=== PATIENT | male | born 1975 | race Caucasian/White ===

== ENCOUNTER 2016-04-29 12:44 | Emergency (ER) | payer OTHER, SELFPAY ==
--- NOTE | 2016-04-29 14:04 | RAD ---
RIGHT FOOT 3 VIEWS: Date: 04/29/16 HISTORY: Trauma, right foot pain. FINDINGS/IMPRESSION: No acute fracture or dislocation is seen. POS: [facility]
== END 2016-04-29 13:16 | disposition home or self-care (01) ==
LOC: MADERS 12:44
DX: S90.221A Contusion of right lesser toe(s) with damage to nail, initial encounter (principal); W22.8XXA Striking against or struck by other objects, initial encounter

== ENCOUNTER 2017-01-06 18:23 | Emergency (ER) | payer OTHER | END 2017-01-06 19:09 | disposition home or self-care (01) | LOC: MADERS 18:23 | DX: R25.2 Cramp and spasm (principal); F17.220 Nicotine dependence, chewing tobacco, uncomplicated | CPT/HCPCS: 99283 ==

== ENCOUNTER 2017-11-15 17:30 | Emergency (ER) | payer OTHER | END 2017-11-15 18:07 | disposition home or self-care (01) | LOC: MADERS 17:30 | DX: M77.9 Enthesopathy, unspecified (principal); I10 Essential (primary) hypertension; F17.220 Nicotine dependence, chewing tobacco, uncomplicated | CPT/HCPCS: 99283 ==

== ENCOUNTER 2018-03-03 13:52 | Emergency (ER) | payer SELFPAY | END 2018-03-03 14:21 | disposition home or self-care (01) | LOC: MADERS 13:52 | DX: R05 Cough (principal); F17.220 Nicotine dependence, chewing tobacco, uncomplicated | CPT/HCPCS: 99281 ==

== ENCOUNTER 2020-02-16 12:17 | Outpatient (CLI) | payer OTHER ==
--- NOTE | 2020-02-16 12:57 | RAD ---
Left hand 3 views HISTORY: Injury. FINDINGS: Mild joint space narrowing, osteophytosis, and subchondral sclerosis at the first carpometa carpal joint. Tiny well-corticated ossification immediately lateral to the base of the trapezium may result from an old injury. Favored to not represent an acute process. Extensive cortical remodeling of the fifth metacarpal shaft and neck from an old healed fracture. Wel l-corticated old appearing injury at the medial base of the fifth metacarpal evident on the oblique view. IMPRESSION : Old healed boxer's fracture fifth metacarpal. Mild osteoarthritic changes. No acute injury is evident.
== END 2020-02-16 12:18 | disposition home or self-care (01) ==
LOC: MADRAD 12:17
PROVIDERS: ATTEND Family Medicine
DX: S69.92XA Unspecified injury of left wrist, hand and finger(s), initial encounter (principal); M19.042 Primary osteoarthritis, left hand

== ENCOUNTER 2020-07-19 12:00 | Emergency (ER) | payer OTHER | END 2020-07-19 12:55 | disposition home or self-care (01) | LOC: MADERS 12:00 | DX: J06.9 Acute upper respiratory infection, unspecified (principal); F17.220 Nicotine dependence, chewing tobacco, uncomplicated | CPT/HCPCS: 99281 ==

== ENCOUNTER 2021-02-11 12:14 | Emergency (ER) | payer OTHER | END 2021-02-11 13:18 | disposition home or self-care (01) | LOC: MADERS 12:14 | DX: J06.9 Acute upper respiratory infection, unspecified (principal); F17.220 Nicotine dependence, chewing tobacco, uncomplicated | CPT/HCPCS: 99283 ==

== ENCOUNTER 2021-05-25 10:37 | Emergency (ER) | payer OTHER ==
[2021-05-25] MEDS ORDERED: Cyclobenzaprine 10 MG TAB ONE (11:16)
== END 2021-05-25 11:22 | disposition home or self-care (01) ==
LOC: MADERS 10:37
DX: M62.830 Muscle spasm of back (principal); F17.220 Nicotine dependence, chewing tobacco, uncomplicated
CPT/HCPCS: 99283

== ENCOUNTER 2021-12-18 22:09 | Emergency (ER) | payer OTHER, SELFPAY ==
[2021-12-18] MEDS ORDERED: diphenhydrAMINE 25 MG CAP ONE (23:01)
[2021-12-18] MEDS ORDERED: Famotidine 20 MG TAB ONE (23:01)
[2021-12-18] MEDS ORDERED: predniSONE 20 MG TAB ONE (23:01)
== END 2021-12-18 23:00 | disposition home or self-care (01) ==
LOC: MADERS 22:09
DX: T78.49XA Other allergy, initial encounter (principal); X08.8XXA Exposure to other specified smoke, fire and flames, initial encounter
CPT/HCPCS: 99283; J7512